=== PATIENT | female | born 1995 ===

== ENCOUNTER 2016-09-25 20:12 | Emergency (ER) | payer OTHER ==
[2016-09-25 20:20] VITALS: BP 134/67; PULSE 93; RESP 18; TEMP 98.7; O2SAT 100
--- NOTE | 2016-09-25 20:57 | ED PDOC ---
HPI: Female Pain Chief Complaint (Provider): malodorous discharge History Per: Patient History/Exam Limitations: no limitations Onset/Duration Of Symptoms: Days (3) Current Symptoms Are (Timing): Better Severity: Mild Associated Symptoms: denies: Fever, Nausea, Vomiting, Diarrhea, Loss Of Appetite , Urinary Symptoms Additional History Per: Patient Additional Complaint(s): 21 y/o G0 presenting with 3 days of malodorous vaginal discharge which started after intercourse with a new sexual partner. Patient states not using condoms or OCP. Denies abdominal/pelvic pain, genital lesions, erythema, urinary symptoms. No fevers, chills, n/v/ no history of STIs. 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 Hx: 3 lifetime sexual partners, no h/o STIs, G0, LMP: 09/15/16, regular 4-5 day duration Patient does not have a PMD PMH: denies PSH: denies SH: social etoh, marijuana, no tobacco Allergies: NKDA Meds: none Abnormal Vaginal Bleeding: No Last Menstral Period: 09/15/16 : 0 <Juan Pablo Barrera F - Last Filed: 09/25/16 21:15> <Seb Head M - Last Filed: 09/25/16 21:24> Time Seen by Provider: 09/25/16 20:16 Chief Complaint (Nursing): Female Genitourinary Supervising Attending Note - Supervising Attending Note The Documented history was done by the: Physician Sales And Training Specialist The documented physical exam was done by the: Physician Sales And Training Specialist The documented procedures were done by the: Physician Sales And Training Specialist - Notes: Notes:: Vaginal dc. <Seb Head M - Last Filed: 09/25/16 21:24> Past Medical History Vital Signs: Last Vital Signs Temp 98.7 F 09/25/16 20:16 Pulse 93 H 09/25/16 20:16 Resp 18 09/25/16 20:16 BP 134/67 09/25/16 20:16 Pulse Ox 100 09/25/16 20:16 - Medical History PMH: No Chronic Diseases - Surgical History Surgical History: No Surg Hx - Family History Family History: States: Unknown Family Hx - Immunization History Hx Tetanus Toxoid Vaccination: No Hx Influenza Vaccination: No Hx Pneumococcal Vaccination: No <Juan Pablo Barrera F - Last Filed: 09/25/16 21:15> Vital Signs: Last Vital Signs Temp 98.7 F 09/25/16 20:16 Pulse 93 H 09/25/16 20:16 Resp 18 09/25/16 20:16 BP 134/67 09/25/16 20:16 Pulse Ox 100 09/25/16 21:19 <HeadSeb M - Last Filed: 09/25/16 21:24> - Home Medications Home Medications: Ambulatory Orders Medication Instructions Recorded No Known Home Med 05/06/16 - Allergies Allergies/Adverse Reactions: Allergies Allergy/AdvReac Type Severity Reaction Status Date / Time No Known Allergies Allergy Verified 05/06/16 17:09 Review of Systems Constitutional: Negative for: Fever, Weakness Eyes: Negative for: Pain Cardiovascular: Negative for: Chest Pain Respiratory: Negative for: Cough Genitourinary Female: Negative for: Dysuria, Hematuria, Vaginal Discharge, Vaginal Bleeding <Juan Pablo Barrera Darion - Last Filed: 09/25/16 21:15> Physical Exam - Physical Exam Appears: Positive for: Non-toxic, No Acute Distress Head Exam: Positive for: ATRAUMATIC Skin: Positive for: Warm, Dry Cardiovascular/Chest: Positive for: Regular Rate, Rhythm Respiratory: Positive for: Normal Breath Sounds Gastrointestinal/Abdominal: Positive for: Bowel Sounds, Soft. Negative for: Tenderness, Distended, Guarding Pelvic Exam: Positive for: Discharge (non malodorous, clear discharge, unremarkable). Negative for: No Cerv. Motion Tender, Active Bleeding, Cervicitis, Lesions, Mass, Tender Adnexa Back: Negative for: L CVA Tenderness, R CVA Tenderness Extremity: Negative for: Pedal Edema Neurologic/Psych: Positive for: Alert, Oriented <Juan Pablo Barrera F - Last Filed: 09/25/16 21:15> - Physical Exam Cardiovascular/Chest: Positive for: Regular Rate, Rhythm Respiratory: Positive for: Normal Breath Sounds <HeadSeb - Last Filed: 09/25/16 21:24> - ECG O2 Sat by Pulse Oximetry: 100 - Progress ED Course And Treament: Vaginal discharge - spec exam: unremarkable, regular clear discharge, no CMT, no lesions - UA - urine preg: negative - no suspicion of STI at this time - patient counselled about barrier protection and OCP Condition: Re-examined, Improved <Juan Pablo Barrera - Last Filed: 09/25/16 21:15> - ECG Pulse Ox Interpretation: Normal - Progress ED Course And Treament: 2123: Stable. AAOx3. Pain free. Tolerated PO. Fu with pcp. <Seb Head - Last Filed: 09/25/16 21:24> Disposition - Patient ED Disposition Is Patient to be Admitted: No - Disposition Disposition: Routine/Home Disposition Time: 21:15 <Juan Pablo Barrera - Last Filed: 09/25/16 21:15> <Seb Head - Last Filed: 09/25/16 21:24> - Clinical Impression Clinical Impression: Female genitourinary symptoms - Disposition [facility] - [facility]16 Condition: GOOD Additional Instructions: follow up with PMD/RADIO DIRECTOR for any further concerns ER precautions discussed: fevers, abdominal pain, vomiting, vaginal bleed Instructions: Vaginal Discharge (ED)
[2016-09-25 21:09] LABS: RBC URINE 1 /hpf (0-3); URINE BACTERIA RARE (<OCC); URINE BILIRUBIN NEGATIVE (NEGATIVE); URINE BLOOD NEGATIVE (NEGATIVE); URINE COLOR YELLOW (YELLOW); URINE GLUCOSE (UA) NEG (Normal); URINE KETONE NEGATIVE (NEGATIVE); URINE LEUKOCYTE ESTERASE NEG Leu/uL (Negative); URINE PROTEIN NEGATIVE (NEGATIVE); URINE UROBILINOGEN 0.2-1.0 mg/dL (0.2-1.0); WBC URINE < 1 /hpf (0-5)
== END 2016-09-25 21:21 | disposition home or self-care (01) ==
LOC: H.ER 20:12
DX: N89.8 Other specified noninflammatory disorders of vagina (principal)

== ENCOUNTER 2017-07-06 13:45 | Emergency (ER) | payer OTHER ==
[2017-07-06 13:56] VITALS: BP 140/85; PULSE 97; RESP 18; TEMP 98.3; O2SAT 99
--- NOTE | 2017-07-06 14:36 | ED PDOC ---
HPI: Female Pain Time Seen by Provider: 07/06/17 14:06 Chief Complaint (Nursing): Female Genitourinary History Per: Patient (21 yo female who presents to the ER because she is concerned about vaginal bleeding for the past 3 weeks. States that she was found to have Chlamydia and treated with an injection and 10 day course of twice daily antibiotic, which she says she was almost completely compliant. She also has slight lower abd pain) History/Exam Limitations: no limitations Current Symptoms Are (Timing): Still Present Severity: Moderate Quality Of Discomfort: Dull Associated Symptoms: denies: Chills, Nausea, Vomiting, Diarrhea, Loss Of Appetite, Back Pain, Urinary Symptoms Past Medical History Reviewed: Historical Data, Nursing Documentation, Vital Signs Vital Signs: Last Vital Signs Temp 98.3 F 07/06/17 13:52 Pulse 97 H 07/06/17 13:52 Resp 18 07/06/17 13:52 BP 140/85 07/06/17 13:52 Pulse Ox 99 07/06/17 13:52 - Medical History PMH: No Chronic Diseases - Family History Family History: States: Unknown Family Hx - Immunization History Hx Tetanus Toxoid Vaccination: No Hx Influenza Vaccination: No Hx Pneumococcal Vaccination: No - Home Medications Home Medications: Ambulatory Orders Medication Instructions Recorded No Known Home Med 05/06/16 - Allergies Allergies/Adverse Reactions: Allergies Allergy/AdvReac Type Severity Reaction Status Date / Time No Known Allergies Allergy Verified 07/06/17 13:56 Review of Systems ROS Statement: Except As Marked, All Systems Reviewed And Found Negative Constitutional: Positive for: Fever Gastrointestinal: Positive for: Abdominal Pain Genitourinary Female: Positive for: Vaginal Discharge, Vaginal Bleeding Physical Exam - Reviewed Nursing Documentation Reviewed: Yes Vital Signs Reviewed: Yes - Physical Exam Appears: Positive for: Well, Non-toxic, No Acute Distress Head Exam: Positive for: ATRAUMATIC, NORMAL INSPECTION, NORMOCEPHALIC Skin: Positive for: Normal Color, Warm, DRY Eye Exam: Positive for: Normal appearance ENT: Positive for: Normal ENT Inspection Neck: Positive for: Normal Cardiovascular/Chest: Positive for: Regular Rate, Rhythm Respiratory: Positive for: CNT, Normal Breath Sounds Gastrointestinal/Abdominal: Positive for: Normal Exam Pelvic Exam: Positive for: External Exam Normal, Speculum Exam Normal (done with Rosemarie Gonzalez as metal coater operator), No Cerv. Motion Tender, Blood, Tender Adnexa (R >L). Negative for: Active Bleeding, Cervicitis, Discharge, Lesions, Mass, Tender W/Cervical Motion Back: Positive for: Normal Inspection Extremity: Positive for: Normal ROM Neurologic/Psych: Positive for: Alert, Oriented - ECG O2 Sat by Pulse Oximetry: 99 Medical Decision Making Medical Decision Making: patient is concerned that she was either partially treated or was reinfected because she had unprotected sex during the time that she receiving treatment from her PMD. She wants to have repeat treatment and followup in 4-6 weeks for repeat testing at her PMD's office. Advised patient to abstain until then. Disposition - Clinical Impression Clinical Impression: STD exposure - Patient ED Disposition Is Patient to be Admitted: No Doctor Will See Patient In The: Office Counseled Patient/Family Regarding: Diagnosis, Need For Followup - Disposition Referrals: Jake Romero MD [Family Provider] - Disposition: Routine/Home Disposition Time: 16:34 Condition: STABLE Additional Instructions: followup with your PMD in 4-6 weeks for repeat testing. Avoid sexual relations until then. Please have your partner(s) tested Instructions: Screening for Sexually Transmitted Infections Forms: Upplication (Mexican), [facility] ED School/Work Excuse - POA Present On Arrival: None
[2017-07-06 16:04] LABS: SQUAMOUS EPITHIAL 18 /hpf (0-5); URINE BACTERIA RARE (<OCC); URINE BILIRUBIN NEGATIVE (NEGATIVE); URINE BLOOD LARGE (NEGATIVE); URINE CLARITY CLOUDY (Clear); URINE COLOR YELLOW (YELLOW); URINE GLUCOSE (UA) NEG (Normal); URINE LEUKOCYTE ESTERASE SMALL Leu/uL (Negative); URINE PROTEIN 30 mg/dL (NEGATIVE); URINE UROBILINOGEN 0.2-1.0 mg/dL (0.2-1.0)
--- NOTE | 2017-07-06 16:30 | US ---
HISTORY: lower abd pain with right adnexal tenderness. COMPARISON: None available. TECHNIQUE: Transvaginal FINDINGS: UTERUS: Measures 7.9 x 3.5 x 4.5 cm. Normal in size and appearance. No fibroid or other mass lesion seen. ENDOMETRIUM: Measures 11 mm in diameter. Unremarkable. CERVIX: No cervical abnormality identified. RIGHT OVARY: Measures 2.3 x 1.7 x 1.8 cm. No solid mass. Normal flow. LEFT OVARY: Measures 2.6 x 1.3 x 2.2 cm. No solid mass. Normal flow. FREE FLUID: No significant free fluid noted. OTHER FINDINGS: None. IMPRESSION: Unremarkable pelvic ultrasound examination.
[2017-07-06] MEDS ORDERED: cefTRIAXone (Rocephin) 250 mg Inj IM STA (16:32)
[2017-07-06] MEDS ORDERED: cefTRIAXone (Rocephin) 250 mg Inj ONE (16:39)
== END 2017-07-06 17:06 | disposition home or self-care (01) ==
LOC: H.ER 13:45
DX: R10.9 Unspecified abdominal pain (principal); Z20.2 Contact with and (suspected) exposure to infections with a predominantly sexual mode of transmission
CPT/HCPCS: 76830; 81003; 81025; 87070; 87086; 87491; 87591; 96372; 99283; J0696

== ENCOUNTER 2017-07-20 13:38 | Emergency (ER) | payer OTHER ==
[2017-07-20] MEDS ORDERED: Lidocaine 5% Patch TD STA (14:53)
[2017-07-20] MEDS ORDERED: Lidocaine 5% Patch TD ONE (15:24)
--- NOTE | 2017-07-20 15:36 | ED PDOC ---
HPI: Back Time Seen by Provider: 07/20/17 14:07 Chief Complaint (Nursing): Back Pain Chief Complaint (Provider): Back pain History Per: Patient History/Exam Limitations: no limitations Onset/Duration Of Symptoms: Days (x2) Current Symptoms Are (Timing): Still Present Quality Of Discomfort: "Pain" Associated Symptoms: Other (dysuria) Exacerbating Factor(s): Movement Additional Complaint(s): Felicitas Martinez is a 21 year old female, with no significant past medical history, who presents to the emergency department complaining of an atraumatic right side lower back pain that radiates down the right leg onset for x2 days. Patient reports pain is worst with movement, specially upon waking up in the morning. Patient states for the same amount of time she has had dysuria but denies any frequency, urgency, hematuria, abdominal pain, nausea, vomit, stool and urinary incontinence, trauma, numbness or tingling. No further medical complaints. PMD: Jake Romero Past Medical History Reviewed: Historical Data, Nursing Documentation, Vital Signs Vital Signs: Last Vital Signs Temp 98.1 F 07/20/17 14:01 Pulse 90 07/20/17 14:01 Resp 16 07/20/17 14:01 BP 116/76 07/20/17 14:01 Pulse Ox 100 07/20/17 14:01 - Medical History PMH: No Chronic Diseases - Surgical History Surgical History: No Surg Hx - Family History Family History: States: Unknown Family Hx - Immunization History Hx Tetanus Toxoid Vaccination: No Hx Influenza Vaccination: No Hx Pneumococcal Vaccination: No - Home Medications Home Medications: Ambulatory Orders Medication Instructions Recorded Cyclobenzaprine [Cyclobenzaprine 10 mg PO Q8 PRN #15 tab 07/20/17 HCl] Naproxen [Naprosyn] 500 mg PO BID PRN #30 tab 07/20/17 Nitrofurantoin Macrocrystals 100 mg PO BID #14 cap 07/20/17 [Macrobid] - Allergies Allergies/Adverse Reactions: Allergies Allergy/AdvReac Type Severity Reaction Status Date / Time No Known Allergies Allergy Verified 07/20/17 14:01 Review of Systems ROS Statement: Except As Marked, All Systems Reviewed And Found Negative Gastrointestinal: Negative for: Nausea, Vomiting, Abdominal Pain Genitourinary Female: Positive for: Dysuria. Negative for: Frequency, Incontinence (urinary and stool), Hematuria Musculoskeletal: Positive for: Back Pain (right lower that radiates down the right leg), Leg Pain (right ) Neurological: Negative for: Numbness (or tingling) Physical Exam - Reviewed Nursing Documentation Reviewed: Yes Vital Signs Reviewed: Yes - Physical Exam Appears: Positive for: Non-toxic, In Acute Distress (moderate painful distress) Head Exam: Positive for: ATRAUMATIC, NORMOCEPHALIC Skin: Positive for: Normal Color, Warm, Dry Eye Exam: Positive for: Normal appearance Neck: Positive for: Painless ROM Cardiovascular/Chest: Positive for: Regular Rate, Rhythm. Negative for: Murmur Respiratory: Positive for: Normal Breath Sounds. Negative for: Respiratory Distress Gastrointestinal/Abdominal: Positive for: Normal Exam, Soft. Negative for: Tenderness, Guarding, Rebound Back: Positive for: Normal Inspection, Muscle Spasm (Right sided paralumbar spasm). Negative for: L CVA Tenderness, R CVA Tenderness, Vertebral Tenderness (throughout the entire spine), Other (straight leg raise test negative) Extremity: Positive for: Normal ROM (lower and upper extremities). Negative for : Calf Tenderness (b/l), Deformity, Swelling Neurologic/Psych: Positive for: Alert, Oriented. Negative for: Motor/Sensory Deficits - ECG O2 Sat by Pulse Oximetry: 100 (RA) Pulse Ox Interpretation: Normal - Progress ED Course And Treament: 1625 On re-evaluation, pt. in no distress. States pain is still present but has improved. States she is now able to walk with minimal pain. No CVA tenderness, no abd/pelvis tenderness. Informed of results. Advised to return to ED if fever or flank pain develops or if symptoms worsen. Medical Decision Making Medical Decision Making: Initial Impression: Back pain Initial Plan: --Urine --Urine dipstick --Flexeril 10 mg PO --Lidoderm 1 ea TD --Toradol 30 mg IM --Urine culture --LS Spine AP/LAT [RAD] --Urinalysis --Reevaluation ~ Scribe Attestation: Documented by Henrry Ma, acting as a scribe for Dangelo Gee PA-C. Provider Scribe Attestation: All medical record entries made by the Scribe were at my direction and personally dictated by me. I have reviewed the chart and agree that the record accurately reflects my personal performance of the history, physical exam, medical decision making, and the department course for this patient. I have also personally directed, reviewed, and agree with the discharge instructions and disposition. Disposition - Clinical Impression Clinical Impression: UTI (urinary tract infection), Low back pain - Patient ED Disposition Is Patient to be Admitted: No - Disposition Referrals: [facility] [Outside] Jake Romero MD [Family Provider] - Disposition: Routine/Home Disposition Time: 16:27 Condition: IMPROVED Additional Instructions: Return to ED immediately if symptoms worsen. Follow up with Dr. Romero for further evaluation. Prescriptions: Cyclobenzaprine [Cyclobenzaprine HCl] 10 mg PO Q8 PRN #15 tab PRN Reason: Muscle Spasm Naproxen [Naprosyn] 500 mg PO BID PRN #30 tab PRN Reason: Pain Nitrofurantoin Macrocrystals [Macrobid] 100 mg PO BID #14 cap Instructions: Urinary Tract Infection, Adult (DC), Low Back Pain in Adults Forms: [employer] (Armenian) Print Language: MONGOLIAN
[2017-07-20 16:08] LABS: SQUAMOUS EPITHIAL 11 /hpf (0-5); URINE BACTERIA RARE (<OCC); URINE BILIRUBIN NEGATIVE (NEGATIVE); URINE BLOOD MODERATE (NEGATIVE); URINE CLARITY CLOUDY (Clear); URINE COLOR YELLOW (YELLOW); URINE GLUCOSE (UA) NEG (Normal); URINE HYALINE CAST 0-2 /hpf (0-2); URINE LEUKOCYTE ESTERASE MOD Leu/uL (Negative); URINE PROTEIN 30 mg/dL (NEGATIVE); URINE UROBILINOGEN 0.2-1.0 mg/dL (0.2-1.0)
--- NOTE | 2017-07-20 16:25 | RAD ---
PROCEDURE: Radiographs of the Lumbar Spine. HISTORY: back pain COMPARISON: No prior. FINDINGS: BONES: Normal alignment. No listhesis. No fracture. DISC SPACES: Unremarkable. OTHER FINDINGS: None. IMPRESSION: Unremarkable radiographs of the lumbar spine.
[2017-07-20 16:55] VITALS: BP 112/68; PULSE 74; RESP 14; TEMP 97.9; O2SAT 99
== END 2017-07-20 16:54 | disposition home or self-care (01) ==
LOC: H.ER 13:38
DX: N39.0 Urinary tract infection, site not specified (principal)
CPT/HCPCS: 72100; 81003; 81025; 87086; 96372; 99283; J1885